=== PATIENT | female | born 1955 | race Caucasian/White ===

== ENCOUNTER → 2016-05-28 | Outpatient (CLI) | payer BC | END | disposition home or self-care (01) | LOC: US 05-27 12:30 | DX: R10.2 Pelvic and perineal pain (principal) ==

== ENCOUNTER → 2016-09-16 | Outpatient (CLI) | payer BC | END | disposition home or self-care (01) | LOC: MAMMO 12:28 | DX: Z12.31 Encounter for screening mammogram for malignant neoplasm of breast (principal); N95.8 Other specified menopausal and perimenopausal disorders ==

== ENCOUNTER 2016-10-02 09:43 | Emergency (ER) | payer BC ==
[~2016-10-02] VITALS: Ht 160 cm; Wt 59.0 kg
[2016-10-02] MEDS ORDERED: HYDROXYZINE PAM50 MG PO (09:55)
[2016-10-02] MEDS ORDERED: PRAMIPEXOLE DIHY1 MG PO (09:55)
[2016-10-02] MEDS ORDERED: CEPHALEXIN500 M1 PO (10:06)
== END 2016-10-02 10:58 | disposition home or self-care (01) ==
LOC: ED 09:43
DX: L03.116 Cellulitis of left lower limb (principal)

== ENCOUNTER → 2016-11-18 | Outpatient (CLI) | payer BC ==
[~2016-11-18] MED LIST: CEPHALEXIN500 M1 PO; CYCLOBENZAPRINE10 MG PO; ELMIRON100 MG PO; HYDROXYZINE PAM50 MG PO; OXYCODON-ACETA1 EACH PO; PRAMIPEXOLE DIHY1 MG PO; TRAZODONE50 MG PO
[2016-11-18 11:36] LABS: BASO % 0.7 % (0.0-1.0); EOS # 0.1 10*3/uL (0.0-0.4); EOS % 2.9 % (1.0-4.0); HEMATOCRIT 41.8 % (37.0-47.0); HEMOGLOBIN 13.9 g/dl (12.0-16.0); LYMPH # 1.2 10*3/uL (1.3-4.4); LYMPH % 26.6 % (27.0-41.0); MEAN CELL VOLUME 96.8 fl (81.0-99.0); MEAN CORPUSCULAR HGB 32.2 pg (27.0-31.0); MEAN CORPUSCULAR HGB CONC 33.3 g/dl (33.0-37.0); MEAN PLATELET VOLUME 11.7 fl (9.6-12.3); MONO # 0.2 10*3/uL (0.1-1.0); MONO % 4.7 % (3.0-9.0); NEUT # 2.9 10*3/uL (2.3-7.9); NEUT % 64.9 % (47.0-73.0); PLATELET COUNT AUTOMATED 237 10*3/uL (130-400); RED BLOOD COUNT 4.32 10*6/uL (4.10-5.10); WHITE BLOOD COUNT 4.5 10*3/uL (4.8-10.8)
== END | disposition home or self-care (01) ==
LOC: LAB 09:12
PROVIDERS: Obstetrics & Gynecology
DX: N81.6 Rectocele (principal)

== ENCOUNTER 2016-11-24 02:10 | Inpatient (IN) | payer BC ==
[~2016-11-24] VITALS: Ht 160 cm; Wt 59.0 kg
[2016-11-24] VITALS (9 sets, daily range): BP systolic 119–150; BP diastolic 54–596
--- NOTE | ~2016-11-24 | WRIGHTHP ---
[place], [place] PATIENT HISTORY AND PHYSICAL EXAM NAME: JAMES HARDIN [facility] #: [id number] UNIT #: [id number] ROOM: DOCTOR: SHAVONNE COHN MD BIRTHDATE: [birth year] DOS: 11/24/2016 HISTORY OF PRESENT ILLNESS: This patient is a 60-year-old white female, 3, para 3, who is long status post menopause, who is being brought to the operating room for a posterior repair, possible right sacrospinous fixation and perineoplasty on 11/24/2016. This patient has a very long and complicated past medical history including numerous vaginal surgeries for genitourinary complaints including a transobturator TVT, revision of this and eventually 2 procedures to remove some mesh and lysis of adhesions. She had gotten no relief and we have performed a PUF questionnaire, which had equalled 25. She has also had a number of visits to some [place] [facility] in [facility]. While the interstitial cystitis had been addressed, it was never diagnosed and/or treated. She has also been to a pain clinic and actually had a neural immunomodulator placed for chronic back pain, joint pain, pelvic pain, etc., that had ____ and had not had the device activated. She also use narcotics on and off for chronic pain over extended period of time. She has had chronic dyspareunia, multiple episodes of UTIs, being diagnosed with negative cultures, however. She has a sense of something falling out and with the exception ____ time back in the earlier part of the year, had only a small rectocele. She has also had a history of diagnosis of mixed incontinence, urgency, frequency, nocturia, even a sensation of inadequate emptying of her bladder, yet she has had urodynamic testing x 2 on both occasions completely normal. Finally, in 2016, the patient had small-bowel obstruction, which was laparoscopically corrected. She states she has been well since and we have since treated her for interstitial cystitis with a rather remarkable response in her pain symptoms. However, since the beginning of the year, the patient has noted that her rectocele has become progressively more symptomatic and has become protruding through the introitus. I discussed with the patient and her thoroughly the fact that she has had multiple, multiple surgeries vaginally, none posteriorly, but multiple surgeries and multiple other surgeries and often has adverse reactions to the surgical work, but that she did certainly have the rectocele and if she felt that it was symptomatic enough and she was willing to undergo the relatively small risks of the posterior repair and possible right sacrospinous fixation with perineoplasty, then I would proceed with helping to correct this. These risks, benefits, indication, potential complications, and alternatives were thoroughly reviewed both with the patient and her , understanding stated and she did sign the consent and was scheduled for 11/24/2016. PAST MEDICAL HISTORY: Besides everything I have just mentioned reveals restless leg syndrome for which she is taking Mirapex 0.25 mg daily. She has sleep disorder and anxiety and takes trazodone 150 mg at bedtime. She takes Elmiron 100 mg t.i.d. for the IC and Vistaril 50 mg at bedtime for the IC, but also contributing to her sleep situation and finally, she is on rather chronic Percocet 5/325 t.i.d. for pain from different etiology different areas of the body. She does have plates and pins placed in her wrist from wrist surgery. She has had the multiple vaginal surgeries as noted above. She has a spinal cord stimulator in place. She has had shoulder surgery x 4, cholecystectomy, neck surgery, has had a tubal ligation and has had gastric bypass. [place], [place] PATIENT HISTORY AND PHYSICAL EXAM NAME: JAMES HADRIN [facility] #: [id number] UNIT #: [id number] ROOM: DOCTOR: SHAVONNE COHN MD BIRTHDATE: [birth year] She amazingly notes no known allergies. She is also a nonsmoker and nondrinker. She has had 3 pregnancies and 3 vaginal deliveries. REVIEW OF SYSTEMS: Stable other than extensive list of issues that I have discussed above. FAMILY HISTORY: Reveals her parents to be and her father did have lung cancer and her mother actually had had C. diff infection following heart surgery. PHYSICAL EXAMINATION: GENERAL: Reveals a pleasant 5 feet 3 inches, 130 pounds, white female in no significant distress. VITAL SIGNS: Blood pressure 132/84, oxygen saturation 96-97% with no history of sleep apnea. HEENT: Grossly intact. NECK: Grossly intact. LUNGS: Grossly intact. CARDIAC: Grossly intact. BREASTS: Grossly intact. ABDOMEN: Grossly intact. EXTREMITIES: Grossly intact. NEUROLOGIC: Grossly intact. She is not using neurostimulator at this time. GENITOURINARY: External genitalia reveals some slight laxity. The rectocele is somewhere between the first and second degree rectocele, with good support of the upper vagina and the anterior vagina otherwise. Bimanual was negative. RECTAL: Negative. Stool Hematest negative. ASSESSMENT: The patient with a progressively worsening rectocele, who would like to have this surgically corrected and to that end, on of 11/24/2016, the patient will undergo posterior repair and perineoplasty and possibly a right sacrospinous fixation. [place], [place] PATIENT HISTORY AND PHYSICAL EXAM NAME: JAMES HARDIN UNIT #: [id number] ROOM: DOCTOR: SHAVONNE COHN MD BIRTHDATE: [birth year] SHAVONNE COHN MD CM:HISPHYS:PATIENT HISTORY AND PHYSICAL EXAMINATION [id number] HALEY COHN MD 11/20/16 0622 interface
--- NOTE | ~2016-11-24 | O ---
[place], [place] OPERATIVE NOTE [id number] UN[facility] #: [id number] ROOM: 516 DOCTOR: SHAVONNE PARK MD BIRTHDATE: [birth year] DOS: 11/24/2016 PREOPERATIVE DIAGNOSIS: Symptomatic rectocele. POSTOPERATIVE DIAGNOSIS: Symptomatic rectocele. PROCEDURE: Posterior repair, right sacrospinous fixation and perineoplasty. SURGEON: Shavonne Park MD. ANESTHESIA: General. ESTIMATED BLOOD LOSS: Less than 75 mL REPLACEMENTS: IV fluids, Ancef, Ofirmev. CONDITION: To recovery was stable and there were no complications with the surgery. OPERATIVE SUMMARY: The patient was taken to the operating room in supine position, general anesthesia, endotracheal intubation, lithotomy position, prepped and draped in routine manner. Lay catheter was placed to straight drain. The exam revealed that there was a first degree rectocele, but there was actually more of a cystocele than rectocele. I had thoroughly explained the patient after she has had several surgeries already for the cystocele and urinary incontinence or urgency, I was not going to perform any procedures, any anterior or vaginal cuff aspect of the vagina, only the posterior vagina. To that end, we made a small triangular shaped incision over the perineum, removed the skin and then made an incision in the posterior vagina in the midline up to about [address] up the posterior vagina. We dissected the vaginal mucosa free from the rectovaginal fascia and the rectum, dissected over to the right ischial spine and then placed our sacrospinous fixation suture in sacrospinous ligament. This was affixed in to the top of the vagina followed by creating several layers of interrupted 2-0 Vicryl suture to obliterate the rectocele. We resected the excess posterior vaginal mucosa and then closed the posterior vaginal incision with a running locking 2-0 Vicryl suture down too close to the fourchette at which point then using a method, we elevated the posterior vagina nicely with our sacrospinous fixation suture. We then completed the posterior vaginal closure with a running locking 2-0 Vicryl suture down the fourchette and then we closed the perineal defect as closed a very small second-degree midline episiotomy with 2 layers of 2-0 Vicryl in a running manner. We then affixed this to the posterior vaginal mucosal closure suture. We then examined for hemostasis and placed 2 additional [id number] sutures in the posterior vaginal incision with excellent hemostasis. We then placed iodoform packing. I performed a rectal exam at this time and noted the intact nature of the sacrospinous fixation suture and the rectal mucosa was intact. We then cleaned the patient off, took her out of lithotomy position, awakened, extubated, and transferred to recovery in satisfactory condition with stable vital signs, clear and adequate urine output, good hemostasis, and stable sponge and instrument count. [place], [place] OPERATIVE NOTE NAME: WILFREDJAMES Ivanna UNIT #: [id number] ROOM: 516 DOCTOR: SHAVONNE PARK MD BIRTHDATE: [birth year] SHAVONNE PARK MD CM:OPRECORD:OPERATIVE NOTE [id number] HALEY PARK MD 11/24/16 1428 interface
--- NOTE | ~2016-11-24 | DS ---
[place], [place] DISCHARGE SUMMARY NAME: JAMES HARDIN [facility] #: [id number] UNIT #: [id number] ROOM: 516 DOCTOR: SHAVONNE COHN MD BIRTHDATE: [birth year] DOS: 11/25/2016 HOSPITAL COURSE: This delightful 61-year-old white female who was admitted for posterior repair, right sacrospinous fixation and perineoplasty for symptomatic rectocele. She underwent these procedures on November 24 without complication and there was minimal blood loss. The patient on postop day #1 was alert, oriented, ambulatory and feeling well. She had had her vaginal packing removed and her Lay catheter, and had not yet voided, but felt well and had no significant vaginal bleeding. Her vital signs were stable. Her physical exam including her heart, lungs, abdomen and external genitalia were all normal. Calves and IV site were stable as well. I reviewed the operative findings and procedure with the patient as well as the discharge instructions. She will increase diet and activity as tolerated. Contact us should she have any problems or complications as outlined in discharge instructions. Utilize Percocet 5/325 one p.o. q.4-6 h. p.r.n. in conjunction with nonsteroidal anti-inflammatory agents on a p.r.n. basis. She will follow up in 6 weeks for her postop checkup. The patient otherwise was doing well and was discharged in satisfactory condition on 11/25/2016. SHAVONNE COHN MD CM:SHY [id number] HALEY COHN MD 11/25/16 1009 interface
--- NOTE | 2016-11-24 15:15 | NUR ---
Time: 1514 A 61 year old FEMALE admitted to under services of DR. LALIT TAN,SHAVONNE. Pt. arrived via stretcher from [place]. Chief complaint: POST OP POSTERIOR REPAIR OF RECTOCELE/FIXATION/PERINEOPLASTY. CARLOS DOMINGUEZ
--- NOTE | 2016-11-24 16:06 | NUR ---
PRN IV BUPROPRION EFFECTIVE FOR PAIN, PER PATIENT.
--- NOTE | 2016-11-25 08:30 | NUR ---
Payroll And Benefits Analyst in to talk to patient. Patient states lives at [address] with HER . There are 4 steps in the home. Physician: DR CURRY [facility]: NONE Patient's level of ADLs: INDEPENDENT Patient has working utilities: YES DME: NONE Follow-up physician's appointment after d/c: PREFERS TO MAKE OWN APPT Does patient want to access PORTAL?: Discharge plan HOME. PRISCILA LINDSAY
--- NOTE | 2016-11-25 09:25 | NUR ---
Discharge instructions reviewed with patient/family. Patient receptive and verbalizes understanding. Follow-up care arranged. Written instructions given to patient/family. RAJ ORDONEZ
== END 2016-11-25 09:25 | disposition home or self-care (01) | DRG 748 ==
LOC: SDC 02:10 → 5E 07:57 → SDC 09:30 → 5E 11-25 09:25
PROVIDERS: ADMIT Obstetrics & Gynecology
PROC: 0JQC3ZZ Repair Pelvic Region Subcutaneous Tissue and Fascia, Percutaneous Approach (ICD-10-PCS; principal; 2016-11-24)
DX: N81.6 Rectocele (principal); G25.81 Restless legs syndrome; G89.29 Other chronic pain; M54.9 Dorsalgia, unspecified; Z87.440 Personal history of urinary (tract) infections; Z79.899 Other long term (current) drug therapy

== ENCOUNTER 2016-12-27 14:29 | Emergency (ER) | payer BC ==
[~2016-12-27] VITALS: Ht 160 cm; Wt 59.0 kg
[2016-12-27] MEDS ORDERED: CYCLOBENZAPRINE5 M3 PO (16:49)
[2016-12-27] MEDS ORDERED: MEDROL DOSEPAK4 MG PO (16:49)
[2016-12-27] MEDS ORDERED: PERCOCET 5-3251 EACH PO (16:49)
== END 2016-12-27 14:51 | disposition home or self-care (01) ==
LOC: ED 14:29
DX: M54.16 Radiculopathy, lumbar region (principal)

== ENCOUNTER 2017-05-14 12:20 | Emergency (ER) | payer BC ==
[~2017-05-14] VITALS: Ht 160 cm; Wt 59.0 kg
[~2017-05-14 12:20] MED LIST changes: +CYCLOBENZAPRINE5 M3 PO; +MEDROL DOSEPAK4 MG PO; +PERCOCET 5-3251 EACH PO
[2017-05-14] MEDS ORDERED: TRAZODONE150 MG PO (13:52)
[2017-05-14] MEDS ORDERED: PERCOCET 5-3251 EACH PO (13:53)
== END 2017-05-14 15:39 | disposition home or self-care (01) ==
LOC: ED 12:20
DX: S39.012A Strain of muscle, fascia and tendon of lower back, initial encounter (principal); S16.1XXA Strain of muscle, fascia and tendon at neck level, initial encounter; Z79.899 Other long term (current) drug therapy; W00.0XXA Fall on same level due to ice and snow, initial encounter; Y93.89 Activity, other specified; Y92.89 Other specified places as the place of occurrence of the external cause; Y99.8 Other external cause status

== ENCOUNTER 2017-07-28 16:58 | Emergency (ER) | payer BC ==
[~2017-07-28] VITALS: Ht 160 cm; Wt 61.2 kg
[~2017-07-28 16:58] MED LIST changes: +TRAZODONE150 MG PO
== END 2017-07-28 18:06 | disposition home or self-care (01) ==
LOC: ED 16:58
DX: R06.02 Shortness of breath (principal); Z79.899 Other long term (current) drug therapy

== ENCOUNTER → 2022-12-16 | Outpatient (CLI) | payer OTHER | END | disposition home or self-care (01) | LOC: RESCLI 09:47 | PROVIDERS: ATTEND Internal Medicine | DX: Z09 Encounter for follow-up examination after completed treatment for conditions other than malignant neoplasm (principal); N30.10 Interstitial cystitis (chronic) without hematuria; N30.00 Acute cystitis without hematuria; N81.6 Rectocele; G25.81 Restless legs syndrome; M54.9 Dorsalgia, unspecified; M81.0 Age-related osteoporosis without current pathological fracture; N32.81 Overactive bladder; R60.0 Localized edema; G89.29 Other chronic pain; Z98.890 Other specified postprocedural states; Z79.899 Other long term (current) drug therapy ==

== ENCOUNTER → 2024-05-05 | Outpatient (CLI) | payer MEDICARE | END | disposition home or self-care (01) | LOC: RESCLI 09:00 | PROVIDERS: ATTEND Internal Medicine | DX: N30.10 Interstitial cystitis (chronic) without hematuria (principal); G25.81 Restless legs syndrome; G89.29 Other chronic pain; K56.600 Partial intestinal obstruction, unspecified as to cause; M81.0 Age-related osteoporosis without current pathological fracture; E55.9 Vitamin D deficiency, unspecified; G62.9 Polyneuropathy, unspecified; N32.81 Overactive bladder; R60.0 Localized edema; Z79.899 Other long term (current) drug therapy; Z98.890 Other specified postprocedural states ==